=== PATIENT | male | born 1955 | race Caucasian/White ===

== ENCOUNTER → 2020-12-22 | Outpatient (CLI) | payer MEDICAID ==
--- NOTE | 2020-12-22 09:28 | US ---
EXAMINATION TYPE: US abdomen limited DATE OF EXAM: 12/22/2020 COMPARISON: NONE CLINICAL HISTORY: 65-year-old male R22.1 palpable mass. Patient states he has palpable mass in LUQ fo r 2 months. Human Resources Trainee notes: When the patient is standing you can see protrusion in LUQ, when he is laying down it goes flat. No pain at all. TECHNIQUE: Targeted ultrasound examination along the left upper quadrant at the site of patient's pal pable abnormality. FINDINGS: Human Resources Trainee notes: Hypoechoic area anterior to left kidney does increase in size with valsalva, unsur e if this area related to fat containing hernia versus other etiology. Scanned soft tissue area aroun d this and no abnormality is noted. Provided images show a vague hypoechoic region this seems to be located posterior to the left hepatic lobe that the structural iron erector indicates as enlarging with Valsalva. Etiology is unclear. IMPRESSION: The structural iron erector indicates a hypoechoic area behind the left liver lobe which enlarges with Valsalva. The etiology is unclear. Recommend contrast enhanced CT to further evaluate. Imaging can be performed without and then with Valsalva.
== END | disposition home or self-care (01) ==
LOC: RADUSWWP 07:25
PROVIDERS: ATTEND Family Medicine
DX: R10.12 Left upper quadrant pain (principal)
CPT/HCPCS: 76705

== ENCOUNTER → 2021-01-26 | Outpatient (CLI) | payer MEDICAID ==
[2021-01-26 08:20] LABS: African American GFR (CKD) >90 (>60 ml/min/1.73 sqM); Blood Urea Nitrogen 24 mg/dL (9-20); Non-African American GFR(CKD) 89 (>60 ml/min/1.73 sqM)
--- NOTE | 2021-01-26 10:10 | CT ---
EXAMINATION TYPE: CT abdomen w con DATE OF EXAM: 01/26/2021 COMPARISON: Limited abdominal ultrasound December 22, 2020 HISTORY: LUQ anterior swelling and tenderness CT DLP: 445.8 mGycm, Automated Exposure Control for Dose Reduction was Utilized. CONTRAST: CT scan of the abdomen is performed with oral and with IV Contrast, patient injected with 100 mL of I sovue 300. FINDINGS: LUNG BASES: No significant abnormality is appreciated. LIVER/GB: No significant abnormality is appreciated. PANCREAS: No significant abnormality is seen. SPLEEN: No significant abnormality is seen. ADRENALS: No significant abnormality is seen. KIDNEYS: Symmetric cortical medullary uptake and excretion without hydronephrosis seen bilaterally. BOWEL: Oral contrast does not reach right-sided ileal level making evaluation of bowel slightly subop timal. No suspicious small or large bowel dilatation. LYMPH NODES: No greater than 1cm abdominal lymph nodes are appreciated. OSSEOUS STRUCTURES: Multilevel facet arthropathy mid to lower lumbar spine. OTHER: Tiny fat-containing umbilical hernia. No additional suspicious wall hernia to correlate with u ltrasound findings. IMPRESSION: No suspicious hernia. No acute finding is seen to account for patient's clinical symptom s.
== END | disposition home or self-care (01) ==
LOC: RADCTMAIN 07:33
PROVIDERS: ATTEND Family Medicine
DX: R19.09 Other intra-abdominal and pelvic swelling, mass and lump (principal)
CPT/HCPCS: 82565; 84520; 74160; 36415; Q9967